=== PATIENT | male | born 1995 | race Caucasian/White ===

== ENCOUNTER 2018-01-28 19:42 | Emergency (ER) | payer OTHER ==
[2018-01-28 19:55] VITALS: BP 135/94
[2018-01-28] MEDS ORDERED: TDAP ADULT 0.5 ML INJ (BOOSTRIX) IM ONE (20:10)
--- NOTE | 2018-01-28 20:32 | EDPHY ---
H & P Smoking Status: Never smoked Time Seen by Provider: 01/28/18 20:02 HPI/ROS: CHIEF COMPLAINT: Injury right 2nd finger HISTORY OF PRESENT ILLNESS: 22-year-old male presents emergency department with injury to his right index finger. The patient was at work and accidentally sliced his finger on the temple meat cutter. The incident happened just prior to arrival. He is unsure of his last tetanus shot. He is right-hand dominant. ROS: Denies numbness or tingling in his fingers, retained foreign body or other injuries. (Morena Galeas) Past Medical/Surgical History: Negative (Morena Galeas) Social History: Negative (Morena Galeas) Physical Exam: On examination patient has 1 cm skin avulsion to the distal, palmar aspect of the right index finger. The laceration does not extend into the nail bed or into the D IP joint. He has full range of motion of his fingers. Normal sensation to light touch with normal 2 point discrimination. He does have slow active bleeding noted. (Morena Galeas) Constitutional: Initial Vital Signs Temperature (C) 36.7 C 01/28/18 19:52 Heart Rate 99 01/28/18 19:52 Respiratory Rate 16 01/28/18 19:52 Blood Pressure 135/94 H 01/28/18 19:52 O2 Sat (%) 96 01/28/18 19:52 O2 Delivery Mode Room Air Allergies/Adverse Reactions: No Known Allergies Allergy (Unverified 01/28/18 19:55) Home Medications: Medication Instructions Recorded NK [No Known Home Meds] 01/28/18 MDM/Departure - MDM Procedures: Surgical foam and dressing applied. (Morena Galeas) Medications Given: Discontinued Medications Diphtheria/Tetanus/Acell Pertussis (Boostrix) 0.5 ml IM .ONCE ONE Stop: 01/28/18 20:11 Last Admin: 01/28/18 20:21 Dose: 0.5 ml ED Course/Re-evaluation: 22-year-old male presents to the emergency department with skin avulsion to the right index finger. Surgical foam and dressing applied. His tetanus shot was updated. He was given wound care precautions. (Morena Galeas) I did not see this patient while he was in the emergency department. However his care was discussed with the PA while the patient was in the department. I agree with treatment plan and management (Sanket Estrada) - Depart Disposition: Home, Routine, Self-Care Clinical Impression: Superficial skin avulsion right finger Condition: Good Instructions: Skin Avulsion (ED), Acute Wounds (ED) Additional Instructions: Return if you notice any signs or symptoms of infection such as redness, swelling, increased pain, fever, purulent drainage. Keep wound dry, clean and protected. Ibuprofen 600mg every 8 hours for pain as directed. Referrals: Work Comp Ref/Restrictions [Outside] - As per Instructions
== END 2018-01-28 20:40 | disposition home or self-care (01) ==
DX: S61.210A Laceration without foreign body of right index finger without damage to nail, initial encounter (principal); W31.89XA Contact with other specified machinery, initial encounter; Y92.511 Restaurant or cafe as the place of occurrence of the external cause; Y93.G1 Activity, food preparation and clean up; Y99.0 Civilian activity done for income or pay; Z23 Encounter for immunization

== ENCOUNTER 2018-08-18 15:43 | Emergency (ER) | payer OTHER ==
[2018-08-18 17:32] VITALS: BP 122/95
--- NOTE | 2018-08-21 17:58 | EDPHY ---
General Time Seen by Provider: 08/18/18 16:10 Narrative: CLINICAL IMPRESSION: Right 2nd finger avulsion laceration ASSESSMENT/PLAN: 22-year-old male presents to the emergency department with a right 2nd finger avulsion lacerations sustained at work. Patient is right-hand dominant. There is no suturable laceration. No deep structure injury. Distal neurovascular exam intact. Tetanus up-to-date. Digital block was placed, wound was irrigated and cleaned, and treated with Surgicel and pressure dressing. Signs and symptoms of infection reviewed, PCP follow-up recommended, warning signs return to ED outlined discharge. DIFFERENTIAL DIAGNOSIS: includes but not limited to laceration of tendon or vascular structure, underlying fracture, laceration with retained FB ED PROCEDURES: Laceration Repair Verbal consent obtained by patient. Risks discussed, including but not limited to infection, pain, retained foreign body, need for additional repair, poor cosmetic result, tendon damage, nerve damage, poor wound healing, vascular damage. Alternatives to repair discussed. [place] protocol used to establish correct patient, procedure, equipment, software support analyst, and site. Anesthesia obtained by nerve block at right 2nd MCP joint. Anesthetized with 0.5% bupivacaine without epinephrine. Laceration location right 2nd digit, length 0.5 cm, depth 0.5 mm, Repair type none required. Patient was prepped and draped in usual sterile fashion. Hemostasis achieved with direct pressure. Wound explored through full range of motion and entire depth of wound probed and visualized with gloved finger. No suspicion for nerve damage, tendon damage, underlying fracture, vascular damage, foreign body, or contamination. Area was cleansed with Shur-Clens and irrigated with sterile saline as per protocol. No foreign body or material removed. Repair method Surgicel and pressure dressing. Patient tolerated well with no immediate complications. Wound care: Clean and dry x 24 hours, gently clean with soap and water, cover with topical antibiotic ointment/bandage. CHIEF COMPLAINT: Right 2nd finger avulsion Laceration HPI: Pleasant 22-year-old male presents to the emergency department within acute avulsion laceration to the right 2nd finger sustained while cleaning a quit min at work. Patient is right-hand dominant. He reports he has done the same thing to this finger in the past. Tetanus up-to-date. Full range of motion of the finger. No reported numbness or loss of sensation. No other injuries. PAST MEDICAL HISTORY: Please see nurse triage note Pertinent Past Surgical History: None reported Social History: See nurse triage note REVIEW OF SYSTEMS: All other systems negative Constitutional: No fever, no chills Musculoskeletal: No deformity, no joint pain Skin: Right 2nd finger laceration Neurological: No sensory loss or weakness, 2 point discrimination intact. PHYSICAL EXAM: General Appearance: Alert, oriented, appropriate for age, cooperative, NAD, well hydrated, non-toxic appearing, VSS, no hypoxia. Neurological: Alert and oriented x 3 Skin: Avulsion laceration to the volar fat pad of the right 2nd finger Musculoskeletal: Full range of motion, distal neurovascular exam intact, 2 point discrimination intact MEDICAL DECISION MAKING: Patient was seen independently. Secondary supervising physician at time of evaluation was Dr. Arizmendi . Diagnosis: Avulsion laceration right 2nd finger. New, requires workup Summary: See assessment and plan for summary of ED visit Patient Progress improved, stable for discharge. - History Smoking Status: Never smoked - Objective Vital Signs: Initial Vital Signs Temperature (C) 37 C 08/18/18 15:51 Heart Rate 86 08/18/18 15:51 Respiratory Rate 16 08/18/18 15:51 Blood Pressure 124/92 H 08/18/18 15:51 O2 Sat (%) 95 08/18/18 15:51 O2 Delivery Mode Room Air Allergies/Adverse Reactions: No Known Allergies Allergy (Unverified 01/28/18 19:55) Home Medications: Medication Instructions Recorded NK [No Known Home Meds] 01/28/18 Departure - Departure Disposition: Home, Routine, Self-Care Clinical Impression: R FINGER LACERATION , Laceration Condition: Good Referrals: NONE *PRIMARY CARE P,. [Primary Care Provider] - As per Instructions
== END 2018-08-18 16:40 | disposition home or self-care (01) ==
DX: S61.210A Laceration without foreign body of right index finger without damage to nail, initial encounter (principal); W26.8XXA Contact with other sharp object(s), not elsewhere classified, initial encounter; Y99.0 Civilian activity done for income or pay; Y92.9 Unspecified place or not applicable; Y93.9 Activity, unspecified